=== PATIENT | female | born 1965 | race Caucasian/White ===

== ENCOUNTER 2017-12-05 19:10 | Emergency (ER) | payer MEDICAID ==
[2017-12-06] MEDS: KETOROLAC 30 MG INJ IV (01:28)
[2017-12-06] MEDS: ACETAMINOPHEN 325 MG TAB PO (02:59)
[2017-12-06] MEDS: KETOROLAC 60 MG INJ IM (02:59)
== END 2017-12-06 03:10 | disposition home or self-care (01) ==
LOC: FTE 19:10
DX: J06.9 Acute upper respiratory infection, unspecified (principal)
CPT/HCPCS: 96372; 99284-25